=== PATIENT | male | born 1940 ===

== ENCOUNTER → 2019-05-15 | Outpatient (CLI) | payer MEDICARE, OTHER | END | disposition home or self-care (01) | LOC: RADPV 09:16 | PROVIDERS: ATTEND Nurse Practitioner Family | DX: I70.201 Unspecified atherosclerosis of native arteries of extremities, right leg (principal); I82.502 Chronic embolism and thrombosis of unspecified deep veins of left lower extremity; I83.893 Varicose veins of bilateral lower extremities with other complications | CPT/HCPCS: 93925; 93970 ==